=== PATIENT | female | born 1965 | race Caucasian/White ===

== ENCOUNTER 2017-11-03 16:06 | Emergency (ER) | payer OTHER ==
[~2017-11-03] VITALS: Ht 180.3 cm; Wt 98.4 kg
[2017-11-03 16:14] VITALS: BP 142/79
[2017-11-03 16:43] LABS: Urine Bacteria FEW /hpf (None Seen); Urine Blood Negative /uL (Negative); Urine Specific Gravity 1.007 (1.001-1.035); Urine WBC <1 /hpf (0 - 5)
[2017-11-03 17:03] LABS: Basophils # (auto) 0 uL; Basophils % (auto) 0.4 % (0.0-2.0); Eosinophils # (auto) 0.5 uL; Eosinophils % (auto) 4.4 % (0.0-7.0); Hematocrit 48.1 % (36.0-46.0); Hemoglobin 16.5 g/dL (12.2-16.2); Lymphocytes # (auto) 3.4 uL; Lymphocytes % (auto) 30.2 % (10.0-50.0); Mean Corpuscular Hemoglobin 29.4 pg (28.0-32.0); Mean Corpuscular Hgb Conc. 34.3 g/dL (32.0-36.0); Mean Corpuscular Volume 85.8 fL (80.0-100.0); Monocytes # (auto) 0.8 uL; Monocytes % (auto) 7.4 % (0.0-12.0); Neutrophils # (auto) 6.5 uL; Neutrophils % (auto) 57.6 % (37.0-80.0); Nucleated Red Blood Cells % 0.1 %; Platelet Count (auto) 337 10^3/uL (140-450); Red Blood Cells 5.61 10^6/uL (4.0-5.20); Red Cell Distribution Width 13.4 % (11.8-14.3); White Blood Cell 11.4 10^3/uL (4.4-10.8)
[2017-11-03 17:17] LABS: Albumin 3.8 g/dL (3.4-5.0); BUN/Creatinine Ratio 12.2; Bilirubin, Total 0.5 mg/dL (0.2-1.0); Calcium 8.5 mg/dL (8.5-10.1); Potassium 3.9 mmol/L (3.5-5.1); Total Protein 8.1 g/dL (6.4-8.2)
== END 2017-11-03 18:45 | disposition left against medical advice (07) ==
LOC: ER 16:11
DX: R10.13 Epigastric pain (principal); Z53.21 Procedure and treatment not carried out due to patient leaving prior to being seen by health care provider
CPT/HCPCS: 36415; 80053; 81001; 82150; 83690; 85025

== ENCOUNTER 2018-07-19 02:59 | Inpatient (IN) | payer OTHER ==
[~2018-07-19] VITALS: Ht 180.3 cm; Wt 100.7 kg
[2018-07-19 04:09] LABS: Urine Bacteria FEW /hpf (None Seen); Urine Blood Negative /uL (Negative); Urine WBC 2 /hpf (0 - 5)
[2018-07-19 06:18] LABS: Basophils # (auto) 0 uL; Basophils % (auto) 0.3 % (0.0-2.0); Eosinophils # (auto) 0.5 uL; Eosinophils % (auto) 3.6 % (0.0-7.0); Hematocrit 45.3 % (36.0-46.0); Hemoglobin 15.7 g/dL (12.2-16.2); Lymphocytes # (auto) 3.2 uL; Mean Corpuscular Hemoglobin 29.9 pg (28.0-32.0); Mean Corpuscular Hgb Conc. 34.5 g/dL (32.0-36.0); Mean Corpuscular Volume 86.7 fL (80.0-100.0); Monocytes # (auto) 0.8 uL; Monocytes % (auto) 6.1 % (0.0-12.0); Neutrophils # (auto) 8.9 uL; Nucleated Red Blood Cells % 0.1 %; Platelet Count (auto) 318 10^3/uL (140-450); Red Blood Cells 5.23 10^6/uL (4.0-5.20); Red Cell Distribution Width 13.1 % (11.8-14.3); White Blood Cell 13.5 10^3/uL (4.4-10.8)
[2018-07-19 06:37] LABS: Potassium 4.1 mmol/L (3.5-5.1)
[2018-07-19 06:45] LABS: Albumin 3.7 g/dL (3.4-5.0); BUN/Creatinine Ratio 21.7; Bilirubin, Total 0.3 mg/dL (0.2-1.0); Calcium 8.7 mg/dL (8.5-10.1); Total Protein 7.7 g/dL (6.4-8.2)
[2018-07-19] MEDS ORDERED: SODIUM CHLORIDE 0.9% 1,000 ML IV ONE ×2 (06:56)
[2018-07-19] MEDS ORDERED: PIPERACILLIN-TAZOB 3.375GM 100 ML IV ONE (07:00)
[2018-07-19] MEDS ORDERED: ONDANSETRON HCL 4 MG/2 ML VIAL IV ONE (07:00)
[2018-07-19] MEDS ORDERED: MORPHINE SULFATE 4 MG/ML SYR/VIAL IV ONE (07:00)
[2018-07-19] MEDS: SODIUM CHLORIDE 0.9% 1,000 ML IV SCH ×2 (08:48→15:28)
[2018-07-19] MEDS ORDERED: MORPHINE SULF INJ 2 MG/ML SYRINGE 1ML IV PRN (09:00)
[2018-07-19] MEDS ORDERED: DEXTROSE (50%) 50ML SYRG IV PRN (09:00)
[2018-07-19] MEDS ORDERED: cefTRIAXone 1GM/50ML D5W 50 ML IV SCH (09:00)
[2018-07-19] MEDS ORDERED: MORPHINE SULFATE 4 MG/ML SYR/VIAL IV PRN ×2 (09:00)
[2018-07-19] MEDS ORDERED: NITROGLYCERIN 0.4 MG SL TAB SL PRN (09:00)
[2018-07-19] MEDS: cefTRIAXone 1GM/50ML D5W 50 ML IV SCH (09:45)
[2018-07-19] MEDS: PROMETHAZINE HCL 25 MG/ML 1ML IV PRN (09:46)
[2018-07-19] MEDS: FAMOTIDINE (10MG/ML) 2ML VL IV SCH ×2 (11:21→22:10)
[2018-07-19] MEDS: InsuLIN REG 1unit/0.01ml Soln (100units/ml) SC SCH ×2 (12:00→18:00)
--- NOTE | 2018-07-19 12:07 | NUR ---
Telemetry admit from ER CHRIS HECK admitted to Telemetry unit after SBAR received. Patient oriented to JOZEF Lim RN, unit, room, bed, and unit policies regarding patient care and visiting hours. Patient now on continuous telemetry monitoring, tele box # 14 and telemetry reading on arrival to unit is Sinus Rhythm, [id number]. Patient is on room air, weighed by bed scale and encouraged to call if they need something. All questions and concerns addressed, patient verbalized understanding.
[2018-07-19] MEDS: ACCU-CHEK COMFORT CURVE STRIP VI SCH ×2 (12:39→18:27)
[2018-07-19 12:40] VITALS: BP 134/78
[2018-07-19 13:14] VITALS: BP 134/78
[2018-07-19] MEDS: metroNIDAZOLE 500MG/100ML 100 ML IV SCH ×2 (14:05→22:11)
[2018-07-19] MEDS ORDERED: INSU1INJ14 SC (15:14)
[2018-07-19] MEDS ORDERED: INSLISPI SC (15:14)
[2018-07-19] MEDS ORDERED: GABA100C9 PO (15:14)
[2018-07-19] MEDS ORDERED: VENL75TA PO (15:14)
[2018-07-19] MEDS ORDERED: LISI-646 PO (15:14)
[2018-07-19] MEDS ORDERED: GABA300C10 PO (15:14)
[2018-07-19] MEDS ORDERED: ROSU20TA14 PO (15:14)
[2018-07-19] MEDS ORDERED: LEVO125T7 PO (15:14)
[2018-07-19] MEDS ORDERED: CHOL400C12 PO (16:35)
[2018-07-19] MEDS ORDERED: VITA400C49 PO (16:35)
[2018-07-19] MEDS ORDERED: MULT-228 OR (16:35)
[2018-07-19] MEDS ORDERED: LYSI1TAB2 PO (16:35)
[2018-07-19] MEDS ORDERED: CYA100I IM (16:35)
[2018-07-19] MEDS ORDERED: POTA10TA51 PO (16:35)
[2018-07-19] MEDS ORDERED: EMOLCRE EX (16:35)
[2018-07-19] MEDS ORDERED: FERR27TA2 PO (16:35)
[2018-07-19 16:42] VITALS: BP 109/53
--- NOTE | 2018-07-19 18:40 | NUR ---
Patient given some sugar to take and melt in her mouth. BS level is 68.
[2018-07-19 22:00] VITALS: BP 128/58
[2018-07-20] VITALS (7 sets, daily range): BP systolic 100–158; BP diastolic 65–82
--- NOTE | 2018-07-20 00:04 | NUR ---
[facility] HOSPITALIST. PATIENT IS NPO AND BS IS 62/MG/DL. AWAITING CALLBACK. CONTINUE PATIENT CARE.
[2018-07-20] MEDS ORDERED: D5W/SOD CHL 0.45% 1,000 ML IV SCH (00:15)
[2018-07-20] MEDS: ACCU-CHEK COMFORT CURVE STRIP VI SCH ×4 (00:24→17:06)
[2018-07-20] MEDS: metroNIDAZOLE 500MG/100ML 100 ML IV SCH (05:26)
[2018-07-20] MEDS: InsuLIN REG 1unit/0.01ml Soln (100units/ml) SC SCH ×4 (05:26→17:24)
[2018-07-20 06:26] LABS: Basophils # (auto) 0 uL; Basophils % (auto) 0.4 % (0.0-2.0); Eosinophils # (auto) 0.3 uL; Eosinophils % (auto) 3.1 % (0.0-7.0); Hematocrit 43.6 % (36.0-46.0); Hemoglobin 14.7 g/dL (12.2-16.2); Lymphocytes # (auto) 3.4 uL; Lymphocytes % (auto) 35.3 % (10.0-50.0); Mean Corpuscular Hemoglobin 29.4 pg (28.0-32.0); Mean Corpuscular Hgb Conc. 33.7 g/dL (32.0-36.0); Mean Corpuscular Volume 87.2 fL (80.0-100.0); Monocytes # (auto) 0.6 uL; Monocytes % (auto) 6.3 % (0.0-12.0); Neutrophils # (auto) 5.3 uL; Neutrophils % (auto) 54.9 % (37.0-80.0); Platelet Count (auto) 288 10^3/uL (140-450); Red Cell Distribution Width 13.1 % (11.8-14.3); White Blood Cell 9.7 10^3/uL (4.4-10.8)
[2018-07-20 06:41] LABS: Albumin 3.1 g/dL (3.4-5.0); Calcium 8.2 mg/dL (8.5-10.1); Potassium 3.6 mmol/L (3.5-5.1)
[2018-07-20 06:43] LABS: Cholesterol 170 mg/dL (< 200)
[2018-07-20 06:45] LABS: BUN/Creatinine Ratio 20.4; Bilirubin, Total 0.6 mg/dL (0.2-1.0); Total Protein 6.8 g/dL (6.4-8.2)
[2018-07-20 06:47] LABS: HDL Cholesterol 41 mg/dL (40-59); LDL Cholesterol 115 mg/dL (< 100); Triglycerides 117 mg/dL (< 150)
--- NOTE | 2018-07-20 07:30 | NUR ---
Opening Shift Note REceived report from Shabbir BOURGEOIS. Assumed care of patient, asleep. No S/S of distress/SOB or pain. Placed call light within reach, kept 2 side rails up, will continue to monitor for changes Q1hr and PRN.
--- NOTE | 2018-07-20 10:05 | NUR ---
IV removal Noted IV infiltrated. IV DC'd with clean sterile technique, catheter fully intact. Pressure dressing applied to site. Patient tolerated well.
--- NOTE | 2018-07-20 10:15 | NUR ---
IV insertion New IV access obtained, via clean sterile technique by inserting gauge catheter 20 at right forearm after 1 attempt. IV secured properly. No trauma to site. Patient tolerated well.
[2018-07-20] MEDS: PROMETHAZINE HCL 25 MG/ML 1ML IV PRN ×2 (10:21→17:24)
[2018-07-20] MEDS: FAMOTIDINE (10MG/ML) 2ML VL IV SCH ×2 (10:22→21:36)
[2018-07-20] MEDS: cefTRIAXone 1GM/50ML D5W 50 ML IV SCH (10:22)
--- NOTE | 2018-07-20 12:00 | NUR ---
Dr. Carrasco at bedside.
--- NOTE | 2018-07-20 12:10 | NUR ---
DC TELE, RETURNED MONITORING BOX TO JUSTIN.
[2018-07-20] MEDS: SODIUM CHLORIDE 0.9% 1,000 ML IV SCH (12:22)
--- NOTE | 2018-07-20 13:00 | NUR ---
PATIENT TOLERATED CLEAR LIQUID DIET, NO COMPLAINTS OF ABDOMINAL PAIN, N/V. WILL ADVANCE DIET TO FULL LIQUID FOR DINNER TONIGHT.
--- NOTE | 2018-07-20 19:35 | NUR ---
PM NOTE PT RESTING IN BED. NO DISTRESS NOTED. BED IN LOW POSITION. CALL LIGHT WITH IN REACH. GOT PT CHICKEN BROTH. WILL CONTINUE TO MONITOR.
--- NOTE | 2018-07-20 21:50 | NUR ---
PT REQUESTING SLEEPING PILL. TALKED TO HOSPITALIST. NEW ORDER FOR RESTORIL.
[2018-07-20] MEDS ORDERED: TEMAZEPAM 15 MG CAP PO ONE (22:00)
--- NOTE | 2018-07-21 | NUR ---
PT HAS OWN BLOOD SUGAR MONITOR. PT BLOOD SUGAR WAS 98 ON HER MACHINE. PT ASKED NOT TO WAKE HER UP AND DO OUR ACCUCHECK.
--- NOTE | 2018-07-21 01:55 | NUR ---
RECEIVED REPORT FROM CHRISTELLE SHER. PT RESTING IN BED, NO S/S DISTRESS.
--- NOTE | 2018-07-21 01:55 | NUR ---
GAVE REPORT TO STEPHEN BOURGEOIS
[2018-07-21] MEDS: SODIUM CHLORIDE 0.9% 1,000 ML IV SCH ×2 (02:55→14:40)
[2018-07-21 05:00] VITALS: BP 137/72
[2018-07-21] MEDS: InsuLIN REG 1unit/0.01ml Soln (100units/ml) SC SCH ×3 (06:00→12:00)
[2018-07-21] MEDS: ACCU-CHEK COMFORT CURVE STRIP VI SCH ×3 (06:38→16:58)
[2018-07-21 06:45] LABS: Basophils # (auto) 0 uL; Basophils % (auto) 0.4 % (0.0-2.0); Eosinophils # (auto) 0.4 uL; Hematocrit 43.8 % (36.0-46.0); Hemoglobin 14.6 g/dL (12.2-16.2); Lymphocytes # (auto) 3.3 uL; Lymphocytes % (auto) 35.2 % (10.0-50.0); Mean Corpuscular Hemoglobin 29.2 pg (28.0-32.0); Mean Corpuscular Hgb Conc. 33.4 g/dL (32.0-36.0); Mean Corpuscular Volume 87.4 fL (80.0-100.0); Monocytes # (auto) 0.6 uL; Monocytes % (auto) 6.7 % (0.0-12.0); Neutrophils % (auto) 53.7 % (37.0-80.0); Platelet Count (auto) 279 10^3/uL (140-450); Red Blood Cells 5.01 10^6/uL (4.0-5.20); Red Cell Distribution Width 13.2 % (11.8-14.3); White Blood Cell 9.3 10^3/uL (4.4-10.8)
[2018-07-21 07:00] LABS: BUN/Creatinine Ratio 13.2; Calcium 8.2 mg/dL (8.5-10.1); Potassium 3.7 mmol/L (3.5-5.1)
--- NOTE | 2018-07-21 07:15 | NUR ---
Closing Shift Note Endorsed care to day shift RN Summer. Pt resting in bed, no s/s distress.
--- NOTE | 2018-07-21 07:23 | NUR ---
Opening Note Received report from shift boss RN. Patient is resting with eyes closed, easy to wake by calling name. No signs or symptoms of distress noted at this time. Patient denies pain at this time. Reviewed plan of care with patient, patient verbalized understanding. Bed in low and locked position call light within reach. Will continue to monitor Q1 hour and PRN.
[2018-07-21 08:41] VITALS: BP 140/79
[2018-07-21] MEDS: FAMOTIDINE (10MG/ML) 2ML VL IV SCH (10:04)
[2018-07-21 12:28] VITALS: BP 162/75
[2018-07-21 15:57] VITALS: BP 162/75
--- NOTE | 2018-07-21 17:05 | NUR ---
Discharge Discharge instructions given as ordered. Encourage to follow up with primary care physician as instructed. All questions and concerns addressed. Patient verbalized understanding. IV removed with catheter intact, pressure dressing applied. Patient ambulate to personal vehicle with all belongings. No signs or symptoms of distress noted at this time.
== END 2018-07-21 17:50 | disposition home or self-care (01) | DRG 440 ==
LOC: ER 03:06 → TELE 08:52 → TELE-EAST 16:42 → EAST 07-20 12:04
PROVIDERS: ADMIT Internal Medicine; ATTEND Internal Medicine
DX: K85.90 Acute pancreatitis without necrosis or infection, unspecified (principal); E03.9 Hypothyroidism, unspecified; I10 Essential (primary) hypertension; E66.9 Obesity, unspecified; E11.65 Type 2 diabetes mellitus with hyperglycemia; D72.829 Elevated white blood cell count, unspecified; Z68.31 Body mass index [BMI] 31.0-31.9, adult; Z83.3 Family history of diabetes mellitus; Z90.710 Acquired absence of both cervix and uterus
CPT/HCPCS: 36415; 74176; 80048; 80053; 80061; 81001; 82150; 82962; 83036; 83605; 83690; 84702; 85025; 87040; 93005; 96365; 96367; 96375; G0378; J0696; J2543; J3490

== ENCOUNTER → 2018-08-24 | Outpatient (CLI) | payer OTHER ==
[~2018-08-24] MED LIST: CHOL400C12 PO; CYA100I IM; EMOLCRE EX; FERR27TA2 PO; INSLISPI SC; INSU1INJ14 SC; LEVO125T7 PO; LISI-646 PO; LYSI1TAB2 PO; MULT-228 OR; POTA10TA51 PO; ROSU20TA14 PO; VENL75TA PO; VITA400C49 PO
[2018-08-24 09:14] LABS: INR < 0.93 (0.9-1.15); Partial Thromboplastin Time 24.1 sec (23.64-32.05)
[2018-08-24 09:16] LABS: Basophils # (auto) 0 uL; Basophils % (auto) 0.4 % (0.0-2.0); Eosinophils # (auto) 0.5 uL; Eosinophils % (auto) 5.2 % (0.0-7.0); Hematocrit 47.1 % (36.0-46.0); Hemoglobin 16.1 g/dL (12.2-16.2); Lymphocytes # (auto) 3.1 uL; Lymphocytes % (auto) 32.5 % (10.0-50.0); Mean Corpuscular Hemoglobin 29.9 pg (28.0-32.0); Mean Corpuscular Hgb Conc. 34.3 g/dL (32.0-36.0); Mean Corpuscular Volume 87.1 fL (80.0-100.0); Monocytes # (auto) 0.6 uL; Monocytes % (auto) 6.8 % (0.0-12.0); Neutrophils # (auto) 5.2 uL; Neutrophils % (auto) 55.1 % (37.0-80.0); Nucleated Red Blood Cells % 0.1 %; Platelet Count (auto) 319 10^3/uL (140-450); Red Cell Distribution Width 12.6 % (11.8-14.3); White Blood Cell 9.4 10^3/uL (4.4-10.8)
[2018-08-24 09:28] LABS: Urine Blood Negative /uL (Negative); Urine Specific Gravity 1.027 (1.001-1.035)
[2018-08-24 09:45] LABS: BUN/Creatinine Ratio 18.3; Potassium 3.9 mmol/L (3.5-5.1)
== END | disposition home or self-care (01) ==
LOC: LAB 08:08
DX: E11.9 Type 2 diabetes mellitus without complications (principal); I10 Essential (primary) hypertension; E03.9 Hypothyroidism, unspecified
CPT/HCPCS: 36415; 80048; 81003; 85025; 85610; 85730; 87081

== ENCOUNTER 2018-11-19 16:08 | Emergency (ER) | payer OTHER ==
[~2018-11-19] VITALS: Ht 180.3 cm; Wt 99.8 kg
[2018-11-19 17:03] LABS: Basophils # (auto) 0 uL; Basophils % (auto) 0.5 % (0.0-2.0); Eosinophils # (auto) 0.3 uL; Eosinophils % (auto) 3.6 % (0.0-7.0); Hemoglobin 15.5 g/dL (12.2-16.2); Lymphocytes # (auto) 2.9 uL; Lymphocytes % (auto) 29.6 % (10.0-50.0); Mean Corpuscular Hemoglobin 29.4 pg (28.0-32.0); Mean Corpuscular Hgb Conc. 34.5 g/dL (32.0-36.0); Mean Corpuscular Volume 85.1 fL (80.0-100.0); Monocytes # (auto) 0.6 uL; Monocytes % (auto) 5.7 % (0.0-12.0); Neutrophils # (auto) 5.9 uL; Neutrophils % (auto) 60.6 % (37.0-80.0); Nucleated Red Blood Cells % 0.2 %; Platelet Count (auto) 308 10^3/uL (140-450); Red Blood Cells 5.29 10^6/uL (4.0-5.20); Red Cell Distribution Width 12.9 % (11.8-14.3); White Blood Cell 9.8 10^3/uL (4.4-10.8)
[2018-11-19 17:21] LABS: Albumin 3.8 g/dL (3.4-5.0); BUN/Creatinine Ratio 15.5; Calcium 9.4 mg/dL (8.5-10.1); Potassium 3.9 mmol/L (3.5-5.1)
[2018-11-19 17:24] LABS: Bilirubin, Total 0.3 mg/dL (0.2-1.0); Total Protein 7.8 g/dL (6.4-8.2)
[2018-11-19 17:40] LABS: Urine Bacteria NONE SEEN /hpf (None Seen); Urine Blood Negative /uL (Negative); Urine Specific Gravity 1.007 (1.001-1.035); Urine WBC None Seen /hpf (0 - 5)
[2018-11-19 17:49] LABS: Amylase 32 U/L (25-115); Lipase 194 U/L (73-393)
[2018-11-19] MEDS ORDERED: SODIUM CHLORIDE 0.9% 1,000 ML IV ONE (18:12)
[2018-11-19] MEDS ORDERED: InsuLIN REG 1unit/0.01ml Soln (100units/ml) IV ONE (18:15)
[2018-11-19 19:30] VITALS: BP 144/73
== END 2018-11-19 19:54 | disposition home or self-care (01) ==
LOC: ER 16:08
DX: R10.13 Epigastric pain (principal); E11.65 Type 2 diabetes mellitus with hyperglycemia; I10 Essential (primary) hypertension; Z90.49 Acquired absence of other specified parts of digestive tract; Z90.710 Acquired absence of both cervix and uterus; Z79.4 Long term (current) use of insulin; Z79.899 Other long term (current) drug therapy
CPT/HCPCS: 36415; 74176; 76705; 80053; 81001; 82150; 82962; 83690; 85025; 96361; 96374; 99284; J1815; J7030

== ENCOUNTER → 2019-01-07 | Outpatient (CLI) | payer OTHER ==
[2019-01-07 08:04] LABS: Urine Bacteria FEW /hpf (None Seen); Urine Blood Negative /uL (Negative); Urine Mucus FEW (None Seen); Urine Specific Gravity 1.023 (1.001-1.035); Urine WBC 1 /hpf (0 - 5)
[2019-01-07 08:44] LABS: Cholesterol 140 mg/dL (< 200); HDL Cholesterol 44 mg/dL (40-59); LDL Cholesterol 77 mg/dL (< 100); Triglycerides 97 mg/dL (< 150)
== END | disposition home or self-care (01) ==
LOC: LAB 07:15
PROVIDERS: ATTEND Internal Medicine
DX: Z12.11 Encounter for screening for malignant neoplasm of colon (principal); E11.9 Type 2 diabetes mellitus without complications; I10 Essential (primary) hypertension; Z90.49 Acquired absence of other specified parts of digestive tract; Z90.710 Acquired absence of both cervix and uterus; Z87.891 Personal history of nicotine dependence
CPT/HCPCS: 36415; 80061; 81001; 82043; 82306; 83036; 84443

== ENCOUNTER 2020-04-09 15:04 | Emergency (ER) | payer OTHER ==
[~2020-04-09] VITALS: Ht 180.3 cm; Wt 91.6 kg
[~2020-04-09 15:04] MED LIST changes: -VENL75TA PO; +VENL75TA2 PO
[2020-04-09] MEDS ORDERED: SODIUM CHLORIDE 0.9% 1,000 ML IV ONE ×2 (15:15)
[2020-04-09 17:28] LABS: Basophils # (auto) 0.1 10 ^3/uL (0-0.2); Basophils % (auto) 0.5 % (0.0-2.0); Eosinophils # (auto) 0.4 10 ^3/uL (0-0.8); Eosinophils % (auto) 3.8 % (0.0-7.0); Hematocrit 45.9 % (36.0-46.0); Hemoglobin 15.9 g/dL (12.2-16.2); Lymphocytes # (auto) 4.1 10 ^3/uL (0.4-5.4); Lymphocytes % (auto) 35.8 % (10.0-50.0); Mean Corpuscular Hemoglobin 30.6 pg (28.0-32.0); Mean Corpuscular Hgb Conc. 34.6 g/dL (32.0-36.0); Mean Corpuscular Volume 88.4 fL (80.0-100.0); Monocytes # (auto) 0.7 10 ^3/uL (0-1.3); Monocytes % (auto) 5.7 % (0.0-12.0); Neutrophils # (auto) 6.2 10 ^3/uL (1.6-8.6); Neutrophils % (auto) 54.2 % (37.0-80.0); Platelet Count (auto) 316 10^3/uL (140-450); Red Cell Distribution Width 13.1 % (11.8-14.3); White Blood Cell 11.4 10^3/uL (4.4-10.8)
[2020-04-09 17:46] LABS: Chloride 110 mmol/L (98-107); Potassium 4.1 mmol/L (3.5-5.1); Sodium 140 mmol/L (136-145)
[2020-04-09 17:52] LABS: Alanine Aminotransferase 37 U/L (13-56); Albumin 3.9 g/dL (3.4-5.0); Alkaline Phosphatase 89 U/L (45-117); Anion Gap 6 (5-15); Aspartate Aminotransferase 16 U/L (15-37); BUN/Creatinine Ratio 16.2; Bilirubin, Total 0.3 mg/dL (0.2-1.0); Blood Urea Nitrogen 12 mg/dL (7-18); Calcium 8.6 mg/dL (8.5-10.1); Carbon Dioxide 24 mmol/L (21-32); GFR African American 106 mL/min; GFR Non-African American 87 mL/min; Glucose 158 mg/dL (74-106); Total Protein 7.9 g/dL (6.4-8.2)
[2020-04-09 18:57] VITALS: BP 151/94
== END 2020-04-09 19:13 | disposition home or self-care (01) ==
LOC: ER 15:04
DX: R55 Syncope and collapse (principal); I10 Essential (primary) hypertension; E11.9 Type 2 diabetes mellitus without complications; Z90.49 Acquired absence of other specified parts of digestive tract; Z90.710 Acquired absence of both cervix and uterus
CPT/HCPCS: 36415; 70450; 80053; 84484; 85025; 96360; 96361; 99284; J7030

== ENCOUNTER 2020-06-26 12:42 | Emergency (ER) | payer OTHER ==
[~2020-06-26] VITALS: Ht 180.3 cm; Wt 93.0 kg
[~2020-06-26 12:42] MED LIST changes: -LISI-646 PO; +LISI20TA28 PO; +VENL1TAB99 PO; -VENL75TA2 PO
[2020-06-26] MEDS ORDERED: GLYCERIN ADULT RECTAL SUPP PR ONE (13:00)
[2020-06-26] MEDS ORDERED: SODIUM CHLORIDE 0.9% 1,000 ML IV ONE ×2 (13:00)
[2020-06-26 14:07] LABS: Basophils # (auto) 0.1 10 ^3/uL (0-0.2); Basophils % (auto) 0.9 % (0.0-2.0); Eosinophils # (auto) 0.6 10 ^3/uL (0-0.8); Eosinophils % (auto) 5.5 % (0.0-7.0); Hematocrit 47.7 % (36.0-46.0); Hemoglobin 16.4 g/dL (12.2-16.2); Lymphocytes # (auto) 3.4 10 ^3/uL (0.4-5.4); Lymphocytes % (auto) 30.4 % (10.0-50.0); Mean Corpuscular Hemoglobin 30.1 pg (28.0-32.0); Mean Corpuscular Hgb Conc. 34.4 g/dL (32.0-36.0); Mean Corpuscular Volume 87.6 fL (80.0-100.0); Monocytes # (auto) 0.8 10 ^3/uL (0-1.3); Monocytes % (auto) 7.1 % (0.0-12.0); Neutrophils # (auto) 6.3 10 ^3/uL (1.6-8.6); Neutrophils % (auto) 56.1 % (37.0-80.0); Nucleated Red Blood Cells % 0.2 %; Red Blood Cells 5.44 10^6/uL (4.0-5.20); Red Cell Distribution Width 13.2 % (11.8-14.3); White Blood Cell 11.2 10^3/uL (4.4-10.8)
[2020-06-26 14:23] LABS: Calcium 8.3 mg/dL (8.5-10.1); Chloride 105 mmol/L (98-107); Potassium 3.9 mmol/L (3.5-5.1); Sodium 137 mmol/L (136-145)
[2020-06-26 14:25] LABS: INR 0.99 (0.9-1.15); Partial Thromboplastin Time 24.5 sec (23.0-31.2)
[2020-06-26 14:26] LABS: Alanine Aminotransferase 32 U/L (13-56); Albumin 3.8 g/dL (3.4-5.0); Anion Gap 10 (5-15); Aspartate Aminotransferase 15 U/L (15-37); BUN/Creatinine Ratio 14.8; Blood Urea Nitrogen 9 mg/dL (7-18); Carbon Dioxide 22 mmol/L (21-32); GFR African American 131 mL/min; GFR Non-African American 109 mL/min; Glucose 173 mg/dL (74-106)
[2020-06-26 14:31] LABS: Alkaline Phosphatase 95 U/L (45-117); Bilirubin, Total 0.4 mg/dL (0.2-1.0); Total Protein 7.5 g/dL (6.4-8.2)
[2020-06-26 15:44] LABS: Urine WBC None Seen /hpf (0 - 5)
[2020-06-26 16:00] LABS: Urine Bacteria NONE SEEN /hpf (None Seen); Urine Blood Negative /uL (Negative); Urine Specific Gravity 1.003 (1.001-1.035)
[2020-06-26 17:23] VITALS: BP 124/69
== END 2020-06-26 18:17 | disposition home or self-care (01) ==
LOC: ER 12:42
DX: E86.0 Dehydration (principal); E11.65 Type 2 diabetes mellitus with hyperglycemia; I10 Essential (primary) hypertension; E78.00 Pure hypercholesterolemia, unspecified; F17.210 Nicotine dependence, cigarettes, uncomplicated; Z79.4 Long term (current) use of insulin; Z79.899 Other long term (current) drug therapy; Z90.49 Acquired absence of other specified parts of digestive tract; Z90.710 Acquired absence of both cervix and uterus; Z98.890 Other specified postprocedural states
CPT/HCPCS: 36415; 71045; 74176; 80053; 81001; 84484; 85025; 85610; 85730; 93005; 96360

== ENCOUNTER 2020-12-25 09:58 | Emergency (ER) | payer OTHER ==
[~2020-12-25] VITALS: Ht 177.8 cm; Wt 90.7 kg
[2020-12-25] MEDS ORDERED: SODIUM CHLORIDE 0.9% 1,000 ML IV ONE (10:30)
[2020-12-25 11:16] LABS: Urine Bacteria FEW /hpf (None Seen); Urine Blood Negative /uL (Negative); Urine Specific Gravity 1.006 (1.001-1.035); Urine WBC <1 /hpf (0 - 5)
[2020-12-25 11:27] LABS: Basophils # (auto) 0 10 ^3/uL (0-0.2); Basophils % (auto) 0.3 % (0.0-2.0); Eosinophils # (auto) 0.6 10 ^3/uL (0-0.8); Eosinophils % (auto) 4.6 % (0.0-7.0); Hematocrit 47.7 % (36.0-46.0); Hemoglobin 16.3 g/dL (12.2-16.2); Lymphocytes # (auto) 3.1 10 ^3/uL (0.4-5.4); Lymphocytes % (auto) 23.3 % (10.0-50.0); Mean Corpuscular Hemoglobin 30.2 pg (28.0-32.0); Mean Corpuscular Hgb Conc. 34.2 g/dL (32.0-36.0); Mean Corpuscular Volume 88.1 fL (80.0-100.0); Monocytes # (auto) 0.7 10 ^3/uL (0-1.3); Neutrophils # (auto) 8.8 10 ^3/uL (1.6-8.6); Neutrophils % (auto) 66.8 % (37.0-80.0); Nucleated Red Blood Cells % 0.1 %; Red Blood Cells 5.42 10^6/uL (4.0-5.20); Red Cell Distribution Width 13.3 % (11.8-14.3); White Blood Cell 13.2 10^3/uL (4.4-10.8)
[2020-12-25 11:43] LABS: Potassium 4.6 mmol/L (3.5-5.1)
[2020-12-25 11:50] LABS: Albumin 3.5 g/dL (3.4-5.0); BUN/Creatinine Ratio 21.3; Bilirubin, Total 0.3 mg/dL (0.2-1.0); Calcium 8.6 mg/dL (8.5-10.1)
[2020-12-25 14:36] VITALS: BP 133/84
== END 2020-12-25 14:41 | disposition home or self-care (01) ==
LOC: ER 09:58
DX: E11.65 Type 2 diabetes mellitus with hyperglycemia (principal); R53.1 Weakness; F17.210 Nicotine dependence, cigarettes, uncomplicated; I10 Essential (primary) hypertension; E78.5 Hyperlipidemia, unspecified; Z79.4 Long term (current) use of insulin; Z79.899 Other long term (current) drug therapy
CPT/HCPCS: 36415; 71046; 74176; 80053; 81001; 85025; 93005; 96360; 96361; 99285; J7030

== ENCOUNTER 2021-09-10 15:43 | Emergency (ER) | payer OTHER ==
[2021-09-10] MEDS ORDERED: MORPHINE SULFATE 4 MG/ML SYR/VIAL IV ONE (16:00)
[2021-09-10] MEDS ORDERED: SODIUM CHLORIDE 0.9% 1,000 ML IVB ONE (16:00)
[2021-09-10] MEDS ORDERED: ONDANSETRON HCL 4 MG/2 ML VIAL IV ONE (16:00)
[2021-09-10] MEDS ORDERED: PANTOPRAZOLE 40 MG/10 ML VIAL INJ IV ONE (16:00)
[2021-09-10 16:05] VITALS: BP 152/68
[2021-09-10 17:10] LABS: Basophils # (auto) 0.1 10 ^3/uL (0-0.2); Basophils % (auto) 0.6 % (0.0-2.0); Eosinophils # (auto) 1.5 10 ^3/uL (0-0.8); Eosinophils % (auto) 12.7 % (0.0-7.0); Hematocrit 44.4 % (36.0-46.0); Hemoglobin 14.5 g/dL (12.2-16.2); Lymphocytes # (auto) 3.4 10 ^3/uL (0.4-5.4); Lymphocytes % (auto) 29.1 % (10.0-50.0); Mean Corpuscular Hemoglobin 27.7 pg (28.0-32.0); Mean Corpuscular Hgb Conc. 32.7 g/dL (32.0-36.0); Mean Corpuscular Volume 84.8 fL (80.0-100.0); Monocytes # (auto) 0.7 10 ^3/uL (0-1.3); Monocytes % (auto) 5.9 % (0.0-12.0); Neutrophils # (auto) 6.1 10 ^3/uL (1.6-8.6); Neutrophils % (auto) 51.7 % (37.0-80.0); Nucleated Red Blood Cells % 0.1 %; Red Blood Cells 5.24 10^6/uL (4.0-5.20); Red Cell Distribution Width 14.3 % (11.8-14.3); White Blood Cell 11.8 10^3/uL (4.4-10.8)
[2021-09-10 17:27] LABS: Albumin 3.6 g/dL (3.4-5.0); Calcium 8.9 mg/dL (8.5-10.1)
[2021-09-10 17:30] LABS: BUN/Creatinine Ratio 8.8; Bilirubin, Total 0.3 mg/dL (0.2-1.0); Total Protein 7.5 g/dL (6.4-8.2)
[2021-09-10] MEDS ORDERED: TRAM-297 PO (17:59)
[2021-09-10] MEDS ORDERED: ONDA-144 PO (17:59)
== END 2021-09-10 18:13 | disposition home or self-care (01) ==
LOC: ER 15:43
DX: R10.9 Unspecified abdominal pain (principal); I10 Essential (primary) hypertension; E11.9 Type 2 diabetes mellitus without complications; E03.9 Hypothyroidism, unspecified; E78.5 Hyperlipidemia, unspecified; F17.210 Nicotine dependence, cigarettes, uncomplicated; Z90.49 Acquired absence of other specified parts of digestive tract; Z90.710 Acquired absence of both cervix and uterus; Z79.4 Long term (current) use of insulin; Z79.899 Other long term (current) drug therapy
CPT/HCPCS: 36415; 74176; 80053; 82150; 83690; 85025

== ENCOUNTER → 2023-01-23 | Outpatient (CLI) | payer OTHER ==
[~2023-01-23] MED LIST changes: +FERR1TAB31 PO; -FERR27TA2 PO; -LISI20TA28 PO; +LISI20TA56 PO; +ONDA-144 PO; +TRAM-297 PO
== END | disposition home or self-care (01) ==
LOC: LAB 06:36
PROVIDERS: ATTEND Anesthesiology
DX: N39.0 Urinary tract infection, site not specified (principal)
CPT/HCPCS: 87086

== ENCOUNTER → 2023-04-06 | Outpatient (CLI) | payer OTHER ==
[2023-04-06 07:52] LABS: Anion Gap 5 (5-15); Carbon Dioxide 28 mmol/L (20-30); Chloride 109 mmol/L (98-107); Potassium 4.3 mmol/L (3.5-5.1); Sodium 142 mmol/L (136-145)
[2023-04-06 07:53] LABS: Calcium 9.2 mg/dL (8.5-10.1)
[2023-04-06 07:58] LABS: Glucose 111 mg/dL (74-106); Triglycerides 132 mg/dL (< 150)
[2023-04-06 07:59] LABS: BUN/Creatinine Ratio 11.6 (10.0-20.0); Blood Urea Nitrogen 8 mg/dL (9-23); LDL Cholesterol 73 mg/dL (< 100)
[2023-04-06 08:00] LABS: Cholesterol 138 mg/dL (< 200); HDL Cholesterol 50 mg/dL (40-59)
[2023-04-06 08:50] LABS: Creatinine, Urine 83.16 mg/dL (30.0-125.0)
[2023-04-06 08:53] LABS: Micro Albumin < 3.0 mg/L (<30.0)
== END | disposition home or self-care (01) ==
LOC: LAB 07:23
PROVIDERS: ATTEND Internal Medicine
DX: E11.9 Type 2 diabetes mellitus without complications (principal); I10 Essential (primary) hypertension
CPT/HCPCS: 36415; 80048; 80061; 82043; 82570; 83036

== ENCOUNTER 2023-12-08 11:33 | Emergency (ER) | payer OTHER ==
[~2023-12-08] VITALS: Ht 180.3 cm; Wt 65.0 kg
[~2023-12-08 11:33] MED LIST changes: +POTA-36 PO; -POTA10TA51 PO
[2023-12-08 12:20] LABS: Basophils # (auto) 0.1 10 ^3/uL (0-0.2); Basophils % (auto) 0.7 % (0.0-2.0); Eosinophils # (auto) 0.6 10 ^3/uL (0-0.8); Eosinophils % (auto) 5.7 % (0.0-7.0); Hematocrit 45.2 % (36.0-46.0); Hemoglobin 15.6 g/dL (12.2-16.2); Lymphocytes # (auto) 3.8 10 ^3/uL (0.4-5.4); Lymphocytes % (auto) 34.2 % (10.0-50.0); Mean Corpuscular Hemoglobin 31.5 pg (28.0-32.0); Mean Corpuscular Hgb Conc. 34.4 g/dL (32.0-36.0); Mean Corpuscular Volume 91.4 fL (80.0-100.0); Monocytes # (auto) 0.7 10 ^3/uL (0-1.3); Neutrophils # (auto) 5.9 10 ^3/uL (1.6-8.6); Neutrophils % (auto) 53.4 % (37.0-80.0); Platelet Count (auto) 273 10^3/uL (140-450); Red Blood Cells 4.94 10^6/uL (4.0-5.20); Red Cell Distribution Width 13.1 % (11.8-14.3)
[2023-12-08 12:50] LABS: Alanine Aminotransferase 21 U/L (7-40); Albumin 4.6 g/dL (3.2-4.8); Alkaline Phosphatase 112 U/L (46-116); Anion Gap 5 (5-15); Aspartate Aminotransferase 17 U/L (13-40); BUN/Creatinine Ratio 15.3 (10.0-20.0); Bilirubin, Total 0.5 mg/dL (0.2-1.0); Blood Urea Nitrogen 11 mg/dL (9-23); Calcium 10.1 mg/dL (8.7-10.4); Carbon Dioxide 28 mmol/L (20-31); Chloride 109 mmol/L (98-107); Glucose 159 mg/dL (74-106); Potassium 4.1 mmol/L (3.5-5.1); Sodium 142 mmol/L (136-145); Total Protein 7.2 g/dL (5.7-8.2)
[2023-12-08 13:37] LABS: Urine Bacteria None Seen /hpf (None Seen)
[2023-12-08 13:52] LABS: Urine Blood Negative /uL (Negative); Urine Clarity Clear (Clear); Urine Color Light-Yellow (Yellow); Urine Protein, UAD Negative (Negative); Urine Specific Gravity 1.013 (1.001-1.035); Urine Urobilinogen Normal (Negative); Urine WBC <1 /hpf (0 - 5)
[2023-12-08 14:00] VITALS: PULSE 68; RESP 14; O2SAT 96
[2023-12-08] MEDS: METOCLOPRAMIDE HCL 5MG/ml INJ 2ml VIAL IV ONE (14:05)
[2023-12-08] MEDS: HYDROmorphone HCL 2 MG/ML VL/or syr IV ONE (14:06)
[2023-12-08] MEDS: SODIUM CHLORIDE 0.9% 1,000 ML IV ONE (14:07)
[2023-12-08 15:18] VITALS: BP 122/60; PULSE 74; RESP 19
[2023-12-08] MEDS ORDERED: HYDR1TAB97 PO (16:24)
[2023-12-08] MEDS ORDERED: METO-281 PO (16:24)
== END 2023-12-08 16:39 | disposition home or self-care (01) ==
LOC: ER 11:33
DX: K86.1 Other chronic pancreatitis (principal); I10 Essential (primary) hypertension; E11.9 Type 2 diabetes mellitus without complications; E03.9 Hypothyroidism, unspecified; E78.5 Hyperlipidemia, unspecified; F17.210 Nicotine dependence, cigarettes, uncomplicated; Z79.899 Other long term (current) drug therapy; Z79.4 Long term (current) use of insulin; Z90.49 Acquired absence of other specified parts of digestive tract; Z87.19 Personal history of other diseases of the digestive system; Z90.710 Acquired absence of both cervix and uterus; Z98.890 Other specified postprocedural states
CPT/HCPCS: 36415; 74176; 80053; 81001; 83690; 83735; 84443; 84484; 85025; 93005; 96361; 96374; 96375; 99285; J1171; J2765; J7030

== ENCOUNTER → 2023-12-18 | Outpatient (CLI) | payer OTHER ==
[~2023-12-18] MED LIST changes: +HYDR1TAB97 PO; +METO-281 PO
[2023-12-18 07:15] LABS: Urine Bacteria None Seen /hpf (None Seen)
[2023-12-18 07:33] LABS: Urine Blood Negative /uL (Negative); Urine Clarity Clear (Clear); Urine Color Light-Yellow (Yellow); Urine Protein, UAD Negative (Negative); Urine Specific Gravity 1.007 (1.001-1.035); Urine Urobilinogen Normal (Negative); Urine WBC 1 /hpf (0 - 5); Urine pH 6.5 (5.0-9.0)
[2023-12-18 07:38] LABS: Basophils # (auto) 0.1 10 ^3/uL (0-0.2); Basophils % (auto) 0.8 % (0.0-2.0); Eosinophils # (auto) 0.5 10 ^3/uL (0-0.8); Eosinophils % (auto) 4.2 % (0.0-7.0); Hematocrit 45.4 % (36.0-46.0); Hemoglobin 15.8 g/dL (12.2-16.2); Lymphocytes # (auto) 2.7 10 ^3/uL (0.4-5.4); Lymphocytes % (auto) 22.8 % (10.0-50.0); Mean Corpuscular Hemoglobin 31.4 pg (28.0-32.0); Mean Corpuscular Hgb Conc. 34.7 g/dL (32.0-36.0); Mean Corpuscular Volume 90.6 fL (80.0-100.0); Monocytes # (auto) 0.7 10 ^3/uL (0-1.3); Monocytes % (auto) 6.2 % (0.0-12.0); Neutrophils # (auto) 7.7 10 ^3/uL (1.6-8.6); Platelet Count (auto) 289 10^3/uL (140-450); Red Blood Cells 5.01 10^6/uL (4.0-5.20); Red Cell Distribution Width 12.9 % (11.8-14.3); White Blood Cell 11.6 10^3/uL (4.4-10.8)
[2023-12-18 07:59] LABS: Creatinine, Urine 31.23 mg/dL (30.0-125.0)
[2023-12-18 08:03] LABS: Alanine Aminotransferase 20 U/L (7-40); Albumin 4.6 g/dL (3.2-4.8); Alkaline Phosphatase 102 U/L (46-116); Anion Gap 6 (5-15); Aspartate Aminotransferase 16 U/L (13-40); BUN/Creatinine Ratio 14.1 (10.0-20.0); Bilirubin, Total 0.6 mg/dL (0.2-1.0); Blood Urea Nitrogen 9 mg/dL (9-23); Calcium 10.1 mg/dL (8.7-10.4); Carbon Dioxide 28 mmol/L (20-31); Chloride 105 mmol/L (98-107); Cholesterol 141 mg/dL (< 200); Glucose 105 mg/dL (74-106); HDL Cholesterol 53 mg/dL (40-59); LDL Cholesterol 69 mg/dL (< 100); Potassium 4.3 mmol/L (3.5-5.1); Sodium 139 mmol/L (136-145); Total Protein 7.2 g/dL (5.7-8.2); Triglycerides 132 mg/dL (< 150)
== END | disposition home or self-care (01) ==
LOC: LAB 07:04
PROVIDERS: ATTEND Internal Medicine
DX: E11.9 Type 2 diabetes mellitus without complications (principal); E78.5 Hyperlipidemia, unspecified
CPT/HCPCS: 36415; 80053; 80061; 81001; 82043; 82306; 82570; 83036; 84443; 85025

== ENCOUNTER → 2024-04-11 | Outpatient (CLI) | payer OTHER | END | disposition home or self-care (01) | LOC: LAB 06:48 | PROVIDERS: ATTEND Internal Medicine | DX: E11.9 Type 2 diabetes mellitus without complications (principal); E03.9 Hypothyroidism, unspecified; E78.5 Hyperlipidemia, unspecified; R10.9 Unspecified abdominal pain | CPT/HCPCS: 36415; 82306; 83036; 83690; 84443 ==

== ENCOUNTER → 2024-09-06 | Outpatient (CLI) | payer OTHER | END | disposition home or self-care (01) | LOC: LAB 06:15 | PROVIDERS: ATTEND Internal Medicine | DX: E11.9 Type 2 diabetes mellitus without complications (principal); E78.5 Hyperlipidemia, unspecified; R74.8 Abnormal levels of other serum enzymes | CPT/HCPCS: 36415; 82306; 83036; 83690; 84443 ==